=== PATIENT | male | born 1970 | race Asian ===

== ENCOUNTER 2021-12-22 15:45 | Outpatient (CLI) | payer OTHER, SELFPAY | END 2021-12-22 15:46 | disposition home or self-care (01) | LOC: LONREF 15:47 | PROVIDERS: Visit Provider Family Medicine | DX: R10.9 Unspecified abdominal pain (principal); R00.2 Palpitations; R07.89 Other chest pain | CPT/HCPCS: 84443 ==

== ENCOUNTER 2022-02-11 08:11 | Outpatient (RCR) | payer OTHER, SELFPAY ==
--- NOTE | 2022-02-11 09:00 | CRLHL7_ITS ---
For Patients: As a result of the Century Cures Act, medical imaging exams and procedure reports are released immediately into your electronic medical record. You may view this report before your referring provider. If you have questions, please contact your health care provider. [facility] MYOCARDIAL PERFUSION SCAN CLINICAL HISTORY: 51-year-old male. Chest pain. Hypertension. Hyperlipidemia. Type 2 diabetes. Former smoker. 5 feet 10 inches, 280 pounds. TECHNIQUE: (Resting SPECT and Stress Gated SPECT with wall motion and ejection fraction) Stress: Treadmill (7 minutes 50 seconds) Maximum heart rate: 141 bpm Maximum systolic blood pressure: 180 mmHg systolic Rate pressure product: 25,380 Dose (Stress/Rest): 42.2 mCi/39.9 mCi Tc-99m Sestamibi (IV) Comparison: None FINDINGS: There is good uptake of activity by the left ventricle. No left ventricular enlargement is noted. There is soft tissue attenuation. No other significant fixed or reversible defects are identified. The gated images demonstrate a normal left ventricular ejection fraction of 68 percent. No regional wall motion abnormalities are identified. IMPRESSION: 1. There is no evidence of significant myocardial ischemia or infarction. 2. Normal left ventricular ejection fraction of 68 percent. This study was jointly reviewed by radiology and cardiology. TEMO RUELAS M.D. KLARISSA ALONSO M.D [email or web address] Transcribed: 4:17 PM DW/Dictated by: Temo Ruelas MD @ 02/11/2022 1:56:00 PM DW/Dictated by: Temo Ruelas MD @ 02/11/2022 1:56:00 PM (Electronically Signed)
[2022-02-11 09:31] VITALS: BP 120/82; PULSE 109; RESP 18
--- NOTE | 2022-02-11 10:16 | P.STN_ITS ---
Stress Test Note Date Date of test: 02/11/22 Providers Referring provider: Joel Yousif Primary care provider: Luis Rubio Stress test physician: Andrew Marcano Stress Test Note Stress test ordered: Stress Myoview Indication for test: chest pain Results discussion: Patient is a very nice 51-year-old gentleman who presents for the above test after reviewing the cardiac stress test medical history form, in discussing the risks benefits and side effects he would like to proceed. Pretest EKG shows normal sinus rhythm, with a ventricular rate of 86, blood pressure 120/86. Q- waves noted in lead 3. Some mild ST wave changes notable. Standard Jitendra protocol is employed over a time course of 7 minutes 50 seconds, he achieved the workload of 9.3 Mets. Test is terminated because of inducement of chest pressure, fatigue, this lasted for approximately 30 seconds into cover E. Then went away. He did reach a target heart rate of 141. Which is 97% of the target. No significant ST wave changes suggestive of ischemia is noted. There is no dysrhythmias. Exercise tolerance was moderate Impression: Negative electrographic portion of exercise Myoview, positive subjective component of test with inducement of chest pressure. Follow up suggested: Await nuclear images, clinical correlation with these will be needed, they will be jointly be read by Cardiology and nuclear Medicine, patient left this testing facility back to normal baseline.
== END 2022-03-26 10:21 | disposition home or self-care (01) ==
LOC: STRESS 08:11
PROVIDERS: PCP Family Medicine; Visit Provider Family Medicine
DX: R07.9 Chest pain, unspecified (principal); R00.2 Palpitations; I10 Essential (primary) hypertension; E78.5 Hyperlipidemia, unspecified; E11.9 Type 2 diabetes mellitus without complications; Z87.891 Personal history of nicotine dependence
CPT/HCPCS: 78452; 93016; 93017; A9500

== ENCOUNTER 2022-05-12 11:13 | Outpatient (CLI) | payer OTHER, SELFPAY ==
[2022-05-12 13:55] LABS: Alanine Aminotransferase* 29 U/L (4-50); Cholesterol* 227 mg/dL (90-199); Magnesium* 1.7 mg/dL (1.5-2.6); Triglycerides* 307 mg/dL (40-149)
[2022-05-12 13:56] LABS: HDL Cholesterol* 49 mg/dL (>=40); LDL Cholesterol Calculated 117 mg/dL (<100)
[2022-05-13 23:28] LABS: Testosterone, Adult Male 237 ng/dL (300-890)
== END 2022-05-12 11:14 | disposition home or self-care (01) ==
PROVIDERS: PCP Family Medicine; Visit Provider Family Medicine
DX: E78.5 Hyperlipidemia, unspecified (principal); N52.9 Male erectile dysfunction, unspecified; R53.83 Other fatigue; I10 Essential (primary) hypertension; F41.9 Anxiety disorder, unspecified; E11.9 Type 2 diabetes mellitus without complications
CPT/HCPCS: 80061; 83735; 84403; 84443; 84460

== ENCOUNTER 2022-06-02 08:55 | Outpatient (CLI) | payer OTHER, SELFPAY | END 2022-06-02 08:56 | disposition home or self-care (01) | LOC: FBOREF 06-04 09:34 | PROVIDERS: PCP Family Medicine; Visit Provider Family Medicine | DX: N52.9 Male erectile dysfunction, unspecified (principal) | CPT/HCPCS: 84403 ==

== ENCOUNTER 2022-12-21 10:49 | Outpatient (CLI) | payer OTHER, SELFPAY ==
[2022-12-21 14:36] LABS: Creatinine Urine 139.4 mg/dL
[2022-12-21 14:38] LABS: Microalbumin Creatinine Ratio 10 mg/g (0-30); Microalbumin Urine 2 mg/dL
== END 2022-12-21 10:50 | disposition home or self-care (01) ==
PROVIDERS: PCP Family Medicine; Visit Provider Family Medicine
DX: E11.9 Type 2 diabetes mellitus without complications (principal); E78.2 Mixed hyperlipidemia; I10 Essential (primary) hypertension; R79.89 Other specified abnormal findings of blood chemistry; R35.0 Frequency of micturition; Z12.5 Encounter for screening for malignant neoplasm of prostate
CPT/HCPCS: 80048; 82043; 82570; 84153

== ENCOUNTER 2023-04-28 10:09 | Outpatient (CLI) | payer OTHER, SELFPAY ==
--- NOTE | 2023-04-28 12:20 | W.ANESCHARGE ---
Anesthesia Charges Start Date/Time Anesthesia Start Date: 04/28/23 Anesthesia Start Time: 11:53 Stop Date/Time Anesthesia Stop Date: 04/28/23 Anesthesia Stop Time: 12:18
--- NOTE | 2023-04-28 12:44 | W.ANESCHARGE ---
Anesthesia Charges Start Date/Time Anesthesia Start Date: 04/28/23 Anesthesia Start Time: 11:53 Stop Date/Time Anesthesia Stop Date: 04/28/23 Anesthesia Stop Time: 12:18
== END 2023-04-28 10:10 | disposition home or self-care (01) ==
LOC: OP CLINIC 10:10
PROVIDERS: PCP Family Medicine; Visit Provider Surgery
DX: Z12.11 Encounter for screening for malignant neoplasm of colon (principal); K64.9 Unspecified hemorrhoids; K63.5 Polyp of colon; K57.30 Diverticulosis of large intestine without perforation or abscess without bleeding
CPT/HCPCS: 00811; 45385; 88305; J2704

== ENCOUNTER 2023-09-06 12:07 | Outpatient (CLI) | payer OTHER, SELFPAY ==
--- OUTSIDE RECORDS SUMMARY | 2023-09-06 12:12 | XMS_ITS | Continuity of Care Document ---
Author Name [facility] Organization [facility] Care Team Providers Care Go Go Dancer Name Role Phone [facility] Unavailable Unavailable Problems Combined list of problems from Department of [facility] and [facility] facilities. It does not include entries that were removed or entered in error. Problem Status Onset Date Problem Type Date of Resolution Comments Source Diagnosis: ICD-10-CM Z96.1 Presence of intraocular lens Active Diagnosis [facility] Immunizations Combined list of available immunizations from the Department of [facility] and [facility] facilities. Immunization Series Date Given Administered By Site Reaction Lot Number CVX Code Drug Retail Brand Ambassador Status Comments Source INFLUENZA, INJECTABLE, MDCK, PRESERVATIVE FREE, QUADRIVALENT 2021 171 complet ed [facility] ZOSTER RECOMBINANT 2021 187 complet ed [facility] COVID-19 (PFIZER), MRNA, LNP-S, PF, 30 MCG/0.3 ML DOSE 2 2020 208 complet ed [facility] COVID-19 (PFIZER), MRNA, LNP-S, PF, 30 MCG/0.3 ML DOSE 1 2020 208 complet ed [facility] TDAP 2016 115 complet ed [facility] Encounters Combined list of: 1) Encounters from [facility] facilities going back up to thelast 18 months. 2) Encounters from the Department of [facility] facilities going back up to 280 months. Location Location Details Encounter Type Encounter Number Reason For Visit Attending Provider ADM Date DC Date Status Disposition Source [place] [facility] Outpatient Encounter [id number] 05/12 [facility] [place] [facility] Outpatient Encounter [id number] SHAHEEN LANGE 07/07 [facility] [place] [facility] Outpatient Encounter [id number] 07/12 [place] [facility] TDAP VACCINE 7 YRS/> IM [id number] MINA ROGEL 07/22 [facility] Outpatient Encounter [id number] 07/28 [place] [facility] [place] [facility] Outpatient Encounter [id number] 07[facility]29 [facility] Outpatient [facility]counter [id number] 07/30 [facility] Outpatient [facility]counter [id number] 07/30 [facility] Outpatient Encounter [id number] ORACIO POWERS E 08/05 [facility] OFFICE O/P EST LOW 20-29 MIN [id number] Diagnos is: ICD-10- CM Z96.1 Presenc e of intraoc ular lens
TED IRIZARRY 05/05 [facility] Outpatient Encounter [id number] 07/14 [facility]
--- OUTSIDE RECORDS SUMMARY | 2023-09-06 12:12 | XMS_ITS | Clinical Summary ---
Author Name Unknown Organization [facility] [facility] Address [place], [place] [address] Care Team Providers Care Sizing Sprayer Name Role Phone Urbano Lynn MD Primary Care Prov ider Allergies Active Allergy Reactions Criticality Noted Date Comments Cumin GI Upset,Hives,Rash 03/21/2022 Throat swelling, difficulty swallowing, and hives Medications Medication Sig Dispensed Refills Start Date End Date Status ibuprofen (ADVIL) 200 mg tabletIndications :fever,pain Take 400 mg by mouth every 6 hours if needed. Indications: FEVER, PAIN Active lansoprazole (PREVACID) 30 mg capsuleIndication s:gastroesophagea l reflux disease Take 30 mg by mouth 2 times daily before meals. Indications: GASTROESOPHAGEAL REFLUX Active traMADol (ULTRAM) 50 mg tabletIndications :pain Take 50 mg by mouth every 4 hours if needed for Pain. Indications: PAIN Active acetaminophen-cod eine (TYLENOL-CODEINE) 120-12 mg/5 mL elixir Take 5 mL by mouth every 4 hours if needed for Pain. Max acetaminophen dose: 4000mg in 24 hrs. 50 mL 0 03/28/2014 Active Trulicity 3 mg/0.5 mL subcutaneous pen INJECT 3 MG UNDER THE SKIN ONCE WEEKLY 12/28/2021 Active EPINEPHrine (EPIPEN) 0.3 mg/0.3 mL auto-injector Inject 0.3 mg intramuscular. 10/16/2018 Active glimepiride (AMARYL) 2 mg tablet TAKE 1 TABLET BY MOUTH EVERY MORNING WITH BREAKFAST 03/09/2022 Active metoprolol succinate SR (TOPROL XL) 200 mg Sustained-Release tablet Take 200 mg by mouth once daily. 03/03/2022 Active omeprazole (PRILOSEC) 20 mg Delayed-Release capsule Take 20 mg by mouth. 03/03/2022 Acti ve rosuvastatin (CRESTOR) 5 mg tablet Take 5 mg by mouth once daily. 03/08/2022 Active sildenafil citrate (VIAGRA) 100 mg tablet Take 100 mg by mouth. 10/19/2019 Active Januvia 100 mg tablet Take 100 mg by mouth once daily. 03/14/2022 Active dicyclomine (BENTYL) 10 mg capsule Take 20 mg by mouth three times daily before meals. 03/14/2023 Active FreeStyle Andrea 14 Day Sensor As directed 1 Each one time. 06/16/2023 Active Ozempic 1 mg/dose (4 mg/3 mL) pen Inject 1 mg subcutaneous once weekly. 07/01/2023 Active valACYclovir (VALTREX) 1 gram tablet Take 1 g by mouth one time if needed (as needed). 06/13/2023 Active benzonatate (TESSALON) 200 mg capsuleIndication s:Acute cough Take 1 Capsule (200 mg) by mouth 3 times daily if needed for Cough. 21 Capsule 07/25/2023 Active Jardiance 10 mg tablet Take 10 mg by mouth. 07/12/2023 Acti ve benzonatate (TESSALON) 200 mg capsuleIndication s:Post-viral cough syndrome Take 1 Capsule (200 mg) by mouth 3 times daily if needed for Cough. 21 Capsule 08/01/2023 Active albuterol HFA (PRO-AIR; VENTOLIN; PROVENTIL) 90 mcg/actuation inhalerIndication s:Post-viral cough syndrome Inhale 1-2 Puffs by mouth every 4 hours if needed for Shortness Of Breath or Wheezing for up to 7 days. 1 Each 08/01/2023 08/08/19 24 guaiFENesin (MUCINEX) 600 mg Extended-Release tabletIndications :Post-viral cough syndrome Take 1 Tablet (600 mg) by mouth two times daily for 10 days. 20 Tablet 08/01/2023 08/11/19 24 Active Problems No known active problems Encounters Date Type Department Care Team Description 08/01/2023 5:25 PM BEHAVIORAL HEALTH WORKER Office Visit [facility] [address] [place] [address] Bernardo Mai, BRENDA Cough 08/01/2023 Travel 07/25/2023 4:15 PM BEHAVIORAL HEALTH WORKER Office Visit [facility] [address] [place] [address] Bernardo Mai NP Cough; Sinus Problem 07/25/2023 Travel from Last 3 Months Immunizations Name Administration Dates Next Due Influenza, IIV3 (Age >=3 years) 04/03/2008 Social History Tobacco Use Types Packs/Day Years Used Date Smoking Tobacco: Every Day Alcohol Use Standard Drinks/Week Comments Yes 0 (1 standard drink = 0.6 oz pur e alcohol) occasionally Sex and Gender Information Value Date Recorded Sex Assigned at Not on file Gender Identity Not on file Sexual Orientation Not on file Obstetrics History Last Filed Vital Signs Vital Sign Reading Time Taken Comments Blood Pressure 147/88 08/01/2023 6:20 PM BEHAVIORAL HEALTH WORKER Pulse 100 08/01/2023 6:20 PM BEHAVIORAL HEALTH WORKER Temperature 36.5 ??C (97.7 ??F) 08/01/2023 6:20 PM CS T Respiratory Rate 16 08/01/2023 6:20 PM BEHAVIORAL HEALTH WORKER Oxygen Saturation 97% 08/01/2023 6:20 PM BEHAVIORAL HEALTH WORKER Inhaled Oxygen Concentration - - Weight 122.8 kg (270 lb 12.8 oz) 08/01/2023 6:20 PM BEHAVIORAL HEALTH WORKER Height 178 cm (5' 10.08) 03/26/2014 3:52 PM CDT Body Mass Index 38.77 03/26/2014 3:52 PM CDT Plan of Treatment Health Maintenance Due Date Last Done Comments Tdap 12/15/1982 Depression screening for age 12+ 1983 HIV for age 15-65 12/15/1986 BMI (ht and wt on same day) for age 18+ 12/15/1989 Hepatitis C screening for ag e 18-79 12/15/1989 Tetanus booster 1991 Colonoscopy through age 75 12/15/2016 Lipids for age 45-75 12/15/2016 Zoster (shingles) series for age 50+ (1 of 2) 12/15/2021 COVID-19 vaccine series (2 - 2022- season) 2023 10/14/2020 Influenza for age 50-64 01/29/2024 04/03/2008 Pneumococcal series for age 6-64 Aged Out No longer eligible based on patient's age to complete this topic Procedures Procedure Name Priority Date/Time Associated Diagnosis Comments COVID-19 MOLECULAR STAT 07/25/2023 5: 37 PM BEHAVIORAL HEALTH WORKER Acute cough INFLUENZA A/B PCR STAT 07/25/2023 5:3 7 PM BEHAVIORAL HEALTH WORKER Acute cough from Last 3 Months Results * COVID-19 MOLECULAR (07/25/2023 5:37 PM BEHAVIORAL HEALTH WORKER) COVID 19 [facility] MOLECULAR Negative Negative 07/26/2023 6:57 PM BEHAVIORAL HEALTH WORKER [facility] 07/26/2023 6:57 PM BEHAVIORAL HEALTH WORKER [facility] Comment:Specimen submitted t o [facility] for testing. Other SPECIMEN FROM NASAL FOSSAE / Unknown Non-Blood / Unknown 07/25/2023 5:37 PM BEHAVIORAL HEALTH WORKER 07/25/2023 5:38 PM BEHAVIORAL HEALTH WORKER Narrative [facility] - 07/26/2023 6:57 PM BEHAVIORAL HEALTH WORKER All PCR tests are subject to false negative result due to variability in viral load and collection technique. A negative result does not rule out a SARS-CoV-2 infection. Clinical correlation required. This test has been authorized by FDA under an Emergency Use Authorization (EUA). This test is only authorized for the duration of time the declaration that circumstances exist justifying the authorization of the emergency use of in vitro diagnostic tests for detection of SARS-CoV-2 virus and/or diagnosis of COVID-19 infection under section 564(b)(1) of the Act, 21 U.S.C. 360bbb-3(b) (1), unless the authorization is terminated or revoked sooner. Bernardo Mai NP [facility]BIOLOGY [facility] [address] [place] [address], * (ABNORMAL) INFLUENZA A/B PCR (07/25/2023 5:37 PM BEHAVIORAL HEALTH WORKER) INFLUENZA A PCR Positive(A) 07/26/2023 6:57 PM BEHAVIORAL HEALTH WORKER [facility] INFLUENZA B PCR Negative 07/26/2023 6:57 PM BEHAVIORAL HEALTH WORKER [facility] Other SPECIMEN FROM NASAL FOSSAE / Unknown Non-Blood / Unknown 07/25/2023 5:37 PM BEHAVIORAL HEALTH WORKER 07/25/2023 5:38 PM BEHAVIORAL HEALTH WORKER Bernardo Mai LIAISON PLANNER MICROBIOLOGY [facility] [address] [place] [address], [place] from Last 3 Months Advance Directives * Full Code (Latest Code Status on File) Date Activated Date Inactivated Comments 03/28/2014 8:01 AM 03/28/2014 3:05 PM Care Teams Sizing Sprayer Relationship Specialty Start Date End Date Urbano Lynn MD PCP - General 01/26/10
== END 2023-09-06 12:08 | disposition home or self-care (01) ==
PROVIDERS: PCP Family Medicine; Visit Provider Family Medicine
DX: E78.2 Mixed hyperlipidemia (principal); I10 Essential (primary) hypertension; M25.59 Pain in other specified joint
CPT/HCPCS: 80048; 80061; 82550; 85651; 86039; 86431

== ENCOUNTER 2024-03-05 11:39 | Outpatient (CLI) | payer OTHER, SELFPAY ==
--- OUTSIDE RECORDS SUMMARY | 2024-03-05 11:46 | XMS_ITS | Continuity of Care Document ---
Author Organization [facility] Address [address] [place] [address] Phone Care Team Providers Care Summer Law Associate Name Role Phone Rosalind Acevedo MD Unavailable Unavailable Allergies, Adverse Reactions, Alerts Substance Reaction Status Criticality lisinopril Altered Heart RateTrouble Breathing Activ e No Information CUMIN EXTRACT Altered Heart RateTrouble Breathing Acti ve No Information hydrochlorothiazide Altered Heart RateTrouble Breathin g Active No Information ATORVASTATIN CALCIUM Diarrhea Active No Info rmation Medications Medication Instructions Dosage Effective Dates (start - stop) Status Comments prednisone 5 mg tablet take 5 tabs PO qday x1 wk, then 4 tabs PO qday x1 wk, then 3 tabs PO qday x1 wk, then 2 tabs PO qday x1 wk, then 1 tab PO qday x1 wk - Active Ozempic 0.25 mg or 0.5 mg (2 mg/3 mL) subcutaneous pen injector inject (0.5MG) by subcutaneous route every week on the same day of each week 0.5 MG - Active dicyclomine 10 mg capsule take 2 capsule by oral route 4 times every day as needed 20 MG - Active Jardiance 25 mg tablet take 1 tablet by oral route every day in the morning 25 MG - Active epinephrine (Jr) 0.15 mg/0.3 mL injection,auto-injec tor as needed - Active FreeStyle Andrea 14 Day Sensor kit - Active fluticasone propionate 50 mcg/actuation nasal spray,suspension inhale 2 spray by intranasal route every day in each nostril 100 MCG - Active glimepiride 4 mg tablet take 1 tablet by oral route every day 4 MG - Active metoprolol succinate ER 200 mg tablet,extended release 24 hr take 1 tablet by oral route every day 200 MG - Active tadalafil 10 mg tablet take 1-2 tablet by oral route every week as needed - Active tramadol 50 mg tablet take 1 tablet by oral route every 2 hours as needed - Active valacyclovir 1 gram tablet take 1 tablet by oral route 2 times every day 1000 MG - Active Wegovy 1.7 mg/0.75 mL subcutaneous pen injector inject (1.7MG) by subcutaneous route every week on the same day of each week 1.7 MG - No Longer Active Problems Condition Type Effective Dates (start - stop) Clini ajith Status Comments No Known Problems Procedures Procedure Date Office/Outpatient Visit, Est Complex e/m visit add on XRay Exam Of Hand 3v X-Ray Exam Of Shoulder 2v X-Ray Exam Lumbosacral 2 Or 3v X-Ray Exam Sacroiliac Joints Office/Outpatient Visit, New Routine Venipuncture Specimen Handling Rbc Sed Rate, Automated Assay Of Creatinine Assay Alkaline Phosphatase Transferase (Ast) (Sgot) Alanine Amino (Alt) (Sgpt) Assay Of Urea Nitrogen Assay Of Blood/Uric Acid Assay Of Ck (Cpk) CReactive Protein CCP Antibody Lyme Disease Antibody Rheumatoid Factor, IGM Rheumatoid Factor, IGG, IGA Complete Cbc WAuto Diff Wbc Advance Directives Directive Yes / No Effective Date File Name No Information Encounters Encounter Description Practice Location Reason(s) For Visit Diagnoses Date Provider Providers Copied on Encounter Office/Outpa tient Visit, [facility] , [address], [place], [address], [place] tel:[phone] [facility] , Musculoskele gallito pain (chief complaint) Other low back painPain in right shoulderPain in left shoulderPain in right handPain in left hand 4 Curtis Boyer. [facility] [address], [place], [address], [place]. tel:[phone] Referring Provider: Rosalind Oates, [facility] [address], [place], [address]. tel:[phone] [facility] , [address], [place], [address], [place] tel:[phone] [facility] , No Information 4 Curtis Boyer. [facility] [address], [place], [address], [place]. tel:[phone] Referring Provider: Rosalind Oates, [facility] [address], [place], [address]. tel:[phone] Office/Outpa tient Visit, [facility] , [address], [place], [address], [place] tel:[phone] [facility] , Musculoskele gallito pain (chief complaint) Other low back painPain in right shoulderPain in left shoulderPain in right handPain in left hand 4 Curtis Boyer. [facility] [address], [place], [address], [place]. tel:[phone] Referring Provider: Rosalind Oates, [facility] [address], [place], [address]. tel:[phone] Family History Family Member Type Diagnosis Age At Onset No Information Payers Payer name Insurance type Covered libertarian ID Omayra samano(s) [employer] [id number] Social History Type Description Quantity Date Captured Comments Alcohol Use Details beer 1 beer rarely Caffeine Use Details coffee 2 cups per day Tobacco Use Status Current non-smoker Smoking Status Never smoker Non-Smoking Tobacco Use Details : No Details Available : No Details Available Sex Male Vital Signs Date / Time: Height Weight BMI Pulse Rate Blood Pressure Temperature Respiratory Rate Body Surface Area Head Circumference Head Circ. Percentile Wt./Bryan. Percentile BMI percentile Pulse Ox Inhaled Ox 8:41 AM 70.00 in 123.014 kg (271.20 lbs) 38.9 1 kg/m eter (2) 128/82 mm[Hg] 97.10 F Chief Complaint And Reason For Visit From encounter dated '01/11/2024 08:30'. Musculoskeletal pain (chief complaint) Reason For Referral Reason For Referral No Information Plan Of Treatment Date Type Action Status Future Order: Radiology Order Sa croiliac Joint X-ray (3+ views) ([id number]), Sent on: Sent Future Order: Radiology Order Clare mbar Spine X-ray (including sacrum) (Limited, 2 or 3 views) ([id number]), Sent on: Sent Future Order: Radiology Order Sh oulder X-ray; Complete (2+ views) ([id number]), Sent on: Sent Future Order: Radiology Order Hatch nd X-ray; Complete (3+ views) ([id number]), Sent on: Sent History Of Present Illness Encounter Date Complaint History Of Prese nt Illness Musculoskeletal pain Musculoskeletal pain Functional Status Date Functional Assessmen t Pain Score 5/10 Instructions Date Instruction Additional Infor mation No Information Assessments Type Assessment Date assessment Other low back pain assessment Pain in right shoulder Aug-14-20 24 assessment Pain in left shoulder 4 assessment Pain in right hand assessment Pain in left hand Patient Care Teams Name Effective Dates (start - stop) Status Members No Information
--- OUTSIDE RECORDS SUMMARY | 2024-03-05 11:47 | XMS_ITS | Encounter Summary ---
Author Name [facility] Address [address] [place] [address] Support Name Relationship Address Phone GIANNIIVAN FRANCESCA Next of Kin [address] [id number] ASTRIDChastityFRANCESCA Emergency Contact [address] [address] Insurance Providers: All historical and current Section Date Range: From patient's date of to the date document was created. This section includes the names of all active insurance providers for the patient. Insurance Provider Type of Coverage Plan Name Start of Policy Coverage End of Policy Coverage Group Number Member ID Insurance Provider's Telephone Number Policy Worthington's Name Patient's Relationship to Policy Worthington [employer] [place] [employer] W/HEALTH REIMBURSE MENT ARRANGEME NT [facility] ER HRA May 30, 2015 [id number] Иван RABAGO PATIENT MEDIMPACT RX PRESCRIPT ION HEALT H PARTN ERS HRA May 30, 2015 [id number] Иван RABAGO PATIENT Selected Encounter This section includes the information on record at [place] for the Encounter. Date/Time Encounter Type Encounter Description Reason Provider Source May 05, 2023 12:40 PM OFFICE O/P EST LOW 20-29 MIN OPHTHALMOLOGY ICD-10-CM Z96.1 Presence of intraocular lens KRYSTAL SIMPSON Encounter Template Text not used by [facility] Assessments - Encounter Diagnoses This section includes the primary and secondary diagnoses documented for the Encounter. Date/Time Primary/Secondary Diagnosis Diagnosis Name Provider Source May 17, 2023 12:31 PM PRIMARY Presence of intraocular lens PING WELDON [facility] May 17, 2023 12:31 PM SECONDARY Other secondary cataract, right eye PING WELDON [facility] Plan of Treatment: Future Appointments (+ 6 months) and Future Tests (+/- 45 days) The Plan of Treatment section includes future care activities for the patient from all [place] treatmentfacilities. This section includes future appointments and future orders which are active, pending or scheduled. Future Appointments This section includes appointments that were scheduled to occur 6 months from the date of the Encounter, up to a maximum of 20 appointments. The data comes from all [place] treatment facilities. Appointment Date/Time Appointment Type Appointme nt Facility Name Jul 14, 2023 10:00 AM [facility]ATORY - SUR[facility] Encounter Notes: All associated encounter notes This section contains the clinical notes associated to the Encounter. Date/Time Encounter Note(s) Provider Source May 05, 2023 01:33 PM OPHTHALMOLOGY ATTE NDING NOTE: LOCAL TITLE: OPHTHALMOLOGY CLINIC NOTE STANDARD TITLE: OPHTHALMOLOGY ATTENDING NOTE DATE OF NOTE: MAY 05, 2023@13:33 ENTRY DATE: MAY 05, 2023@13:33:04 AUTHOR: ЕЛЕНА WELDON COSIGNER: URGENCY: STATUS: COMPLETED Clinic Progress Note CC: Back in June, he notes a halo in the right eye (this is the eye that was operated on). He then developed blurred vision in the middle of his right eye. This is bothersome to him and interfere with computer work. It is always present, but he usually ignored it. He tried blinking which does not help. He wears contact lenses in both eyes. He has a permanent black floater that has been present for a while. HPI: POH: See Impression Tech exam today: Last refraction: Vision: OD:CL(contact lenses) OD: 20/15-2 Pinhole: 20/ Vision: OS:CL(contact lenses) 0S: 20/20-1 fuzzy Pinhole: 20/ Intra-ocular pressure (IOP): OD: 18 OS: 17 iCare Dilation: mydriacyl 1% and neosynephrine OU Apr@13:15 I have reviewed the extractions technician's note and agree with their findings. Examination: Patient is alert and oriented x 3. SLE Both eyes: lids/lashes:MGD conjunctiva/sclera: white and quiet cornea:clear anterior chamber: deep and quiet iris: normal lens: PCIOL with nasal 1+ PCO OD, 1-2+NS anterior and posterior cortical changes OS DFE Both eyes: vitreous: syneresis optic nerve:pink clear margins 0.3 C/D macula: flat no edema vessels: normal periphery: flat OCT macula 05/05/23: OD: hyaloid off, no irf/srf OS: hyaloid attached, no irf/srf Impression/Plan: # Psuedophakia, OD # Posterior capsular opacity, OD Notes blurred vision which is visually significant and interfering with computer work. [facility] 20/15. Mild nasal PCO on exam which is the likely cause of blurred vision. Discussed that it is worth doing a YAG capsulotomy to see if symptoms improved; however, it is not guarantee to help. He understands this. Plan YAG capsulotomy first available OD # Cataract, OS Does not appear visually significant at this time Monitor # PVD, OD Based on symptoms of large floater and OCT macula Vitreous syneresis on exam # Type 2 DM Diagnosed 5 years ago Controlled with oral medication No signs of diabetic retinopathy Recommend yearly dilated eye exams RTC: Laser clinic first available for YAG OD Staff race and sports book writer, Dr. Nunez /jonas/ PING GARNICA MD RESIDENT, OPHTHALMOLOGY Signed: 05/05/2023 14:09 PING WELDON [facility] May 05, 2023 01:23 PM OPHTHALMOLOGY CONS ULT: LOCAL TITLE: OPHTHALMOLOGY IMAGING MSP OUTPT CONSULT STANDARD TITLE: OPHTHALMOLOGY CONSULT DATE OF NOTE: MAY 05, 2023@13:23 ENTRY DATE: MAY 05, 2023@13:23:57 AUTHOR: LEONCIO VILLA EXP COSIGNER: URGENCY: STATUS: COMPLETED Requested test(s) done, OCT of maculae OU results uploaded to room server for review. /jonas/ DONNELL RAMOS CRA Photoresist Contact Printer Signed: 05/05/2023 13:24 LEONCIO VILLA [facility] May 05, 2023 12:54 PM OPHTHALMOLOGY TECH NICIAN NOTE: LOCAL TITLE: NEWS CAMERAMAN NOTE STANDARD TITLE: NEWS CAMERAMAN NOTE DATE OF NOTE: MAY 05, 2023@12:54 ENTRY DATE: MAY 05, 2023@12:54:12 AUTHOR: MINDI WHITE COSIGNER: URGENCY: STATUS: COMPLETED Eye Start Exam Patient: ALFREDO RABAGO Sex: MALE SSN: [id number] Birthdate: [birth year] Chief complaint: Acute clinic Pt states he had a had a hallo white in the OD back in July, it started to break apart in November. Gone now, but increase floaters ,theres a blur. No flashing ( CAT SX 2014 ) SCL OU ( toric) AT( rewet ) History of Present Illness: Location: Intensity: Duration: Problem List - Active - NONE FOUND Surgeries: JAN 31, 2015 Proc: Cataract right eye Follow Up Exam Last refraction: Vision: OD:CL(contact lenses) OD: 20/15-2 Pinhole: 20/ Near: 20/ Vision: OS:CL(contact lenses) 0S: 20/20-1 fuzzy Pinhole: 20/ Near: 20/ Confrontational Rodriguez: Full to finger counting: Right: Yes Left: Yes Extra Ocular Movement: Pupils: Right: Round Left: Round Size: Right: 4 Left: 4 React to light: Right: Yes Left: Yes Afferent pupil defect: Right: Grade: Left: Grade: Note: Intra-ocular pressure (IOP): OD: 18 OS: 17 iCare Dilation: mydriacyl 1% and neosynephrine OU Apr@13:15 /jonas/ BERENICE MARTINEZSSM [facility] CERTIFIED EARLY CHILDHOOD AIDE CLASSROOM Signed: 05/05/2023 13:15 BERENICE WHITE [facility]
--- OUTSIDE RECORDS SUMMARY | 2024-03-05 11:47 | XMS_ITS | Continuity of Care Document ---
Author Name [facility] Organization [facility] Care Team Providers Care Yarn Worker Name Role Phone [facility] Unavailable Unavailable Problems Combined list of problems from Department of [facility] and [facility] facilities. It does not include entries that were removed or entered in error. Problem Status Onset Date Problem Type Date of Resolution Comments Source Diagnosis: ICD-10-CM Z96.1 Presence of intraocular lens Active Diagnosis [facility] Immunizations Combined list of available immunizations from the Department of [facility] and [facility] facilities. Immunization Series Date Given Administered By Site Reaction Lot Number CVX Code Drug Manual Writer Status Comments Source INFLUENZA, INJECTABLE, MDCK, PRESERVATIVE FREE, QUADRIVALENT 2021 171 complet ed [facility] ZOSTER RECOMBINANT 2021 187 complet ed [facility] COVID-19 (PFIZER), MRNA, LNP-S, PF, 30 MCG/0.3 ML DOSE 2 2020 208 complet ed [facility] COVID-19 (PFIZER), MRNA, LNP-S, PF, 30 MCG/0.3 ML DOSE 1 2020 208 complet ed [facility] TDAP 2016 115 complet ed [facility] Encounters Combined list of: 1) Encounters from Department of [facility] facilities going back up to thelast 18 months. 2) Encounters from the Department of [facility] facilities going back up to 280 months. Location Location Details Encounter Type Encounter Number Reason For Visit Attending Provider ADM Date DC Date Status Disposition Source [facility] OFFICE O/P EST LOW 20-29 MIN [id number] Diagnos is: ICD-10- CM Z96.1 Presenc e of intraoc ular lens
Geraldine SIMPSON 05/05 [facility] En[facility] [id number] 07/14 [facility]
== END 2024-03-05 11:40 | disposition home or self-care (01) ==
PROVIDERS: PCP Family Medicine; Visit Provider Family Medicine
DX: E11.9 Type 2 diabetes mellitus without complications (principal); I10 Essential (primary) hypertension; E78.2 Mixed hyperlipidemia; R79.89 Other specified abnormal findings of blood chemistry; Z12.5 Encounter for screening for malignant neoplasm of prostate
CPT/HCPCS: 80061; G0103

== ENCOUNTER 2024-10-03 09:17 | Outpatient (CLI) | payer OTHER, SELFPAY | END 2024-10-03 09:18 | disposition home or self-care (01) | LOC: FBOREF 09:18 | PROVIDERS: PCP Family Medicine; Visit Provider Family Medicine | DX: I10 Essential (primary) hypertension (principal) | CPT/HCPCS: 80048 ==